=== PATIENT | female | born 1955 | race Caucasian/White ===

== ENCOUNTER 2017-02-27 18:39 | Emergency (ER) | payer SELFPAY ==
[2017-02-27] MEDS ORDERED: KETAMINE HCL 500 MG/10 ML VIAL ONE (19:05)
[2017-02-27 19:28] LABS: MEAN PLATELET VOLUME 8.3 fL (7.4-10.4)
[2017-02-27 19:31] LABS: BASOPHIL# 0.1 X 10^3uL (0.0-0.1); EOSINOPHILS 1.5 % (0.0-6.0); EOSINOPHILS# 0.1 X 10^3uL (0.0-0.4); HEMATOCRIT 50.2 % (36.0-48.0); HEMOGLOBIN 17.9 g/dL (12.0-16.0); LYMPHOCYTES 43.5 % (20.0-40.0); LYMPHOCYTES# 3.8 X 10^3uL (0.8-3.8); MEAN CELL VOLUME 90.3 fL (80.0-100.0); MEAN CORPUS. HGB CONCENTRATION 35.6 g/dL (32.0-36.0); MEAN CORPUSCULAR HEMOGLOBIN 32.2 pg (29.0-35.0); MONOCYTES 7.6 % (2.0-10.0); MONOCYTES# 0.7 X 10^3uL (0.2-1.0); NEUTROPHILS 46.4 % (54.0-75.0); NEUTROPHILS# 3.9 X 10^3uL (2.6-6.7); PLATELET COUNT 284 X 10^3uL (130-440); RED BLOOD COUNT 5.56 X 10^6uL (4.20-6.10); RED CELL DISTRIBUTION WIDTH 11.7 % (11.5-14.5); WHITE BLOOD COUNT 8.6 X 10^3uL (3.9-10.7)
[2017-02-27 19:43] LABS: A/G RATIO 1.3; ALBUMIN 5.3 g/dL (3.5-5.0); ALKALINE PHOSPHATASE 72 U/L (38-126); ALT 92 U/L (9-52); AST 71 U/L (14-36); BILIRUBIN, TOTAL 0.6 mg/dL (0.2-1.3); BLOOD UREA NITROGEN 10 mg/dL (7-17); CALCIUM 9.8 mg/dL (8.4-10.2); CHLORIDE 109 mmol/L (98-107); CREATININE 0.9 mg/dL (0.5-1.0); EST GLOMERULAR FILTRATION RATE > 60 mL/min; GLUCOSE 90 mg/dL (70-100); MAGNESIUM 2.3 mg/dL (1.6-2.3); POTASSIUM 3.8 mmol/L (3.5-5.1); SODIUM 150 mmol/L (137-145); TOTAL PROTEIN 9.3 g/dL (6.3-8.2)
[2017-02-27 19:53] LABS: ACETAMINOPHEN < 10.0 ug/mL (10.0-30.0); ETHYL ALCOHOL 340 mg/dL (<10); SALICYLATE < 1.0 mg/dL (<20.0)
--- NOTE | 2017-02-28 01:01 | ER PHYSICIAN DOCUMENTATION ---
Physician Documentation [facility] Name:Zonia Sánchez Age:61 yrs Sex:Female :1955 Arrival Date:02/27/2017 Time:18:39 BedTrauma-A Private MD: Terry Fritz Disposition: 02/28 00:16 Chart complete. tl1 Disposition: 02/28/17 00:00 Discharged to [facility]. Impression: Alcohol Intoxication, Dependence Acute. - Condition is Good. - Discharge Instructions: Abuse, Alcohol - ALCOHOL INTOXICATION. - Medical Reconciliation form form. - Follow up: Private Physician; When: 1 - 2 days; Reason: Recheck today's complaints, Continuance of care. - Problem is new. - Symptoms have improved. - Notes: GO DIRECTLY TO [facility] FOR EVALUATION. HPI: 02/27 18:50 This 61 yrs old Female presents to ER with complaints of ETOH Abuse. tl1 18:50 The patient presents to the emergency department with a history of substance abuse, tl1 Type: whisky, the amount of abuse is unknown, for an unknown duration. 02/28 00:01 She is a [employer] alumnus, and presented to [employer] this evening for alcohol detox and tl1 rehab, and by report, was immediately angry, confrontational, intoxicated, belligerent, and combative. Medics were summoned and she was brought here for evaluation. On arrival, her behavior was the same: violent, combative, threatening and assaultive. She was uncooperative with any attempt at obtaining a history and responded, "fuck off" to all questions.. Historical: - Allergies: Pt states no med allergies; - Home Meds: 1. unable to obtain - PMHx: unable to obtain; - PSHx: unable to obtain; - Tetanus: unknown. - Ebola Screening: : Unable to complete screening because. - Social history: Smoking status: unknown if patient ever smoked tobacco. - Immunization history: Unable to Obtain. ROS: 00:08 Unable to obtain ROS due to patient being uncooperative. tl1 Exam: 00:08 Head/Face: Normocephalic, atraumatic. tl1 Eyes: Pupils equal round and reactive to light, extra-ocular motions intact. Lids and lashes normal. Conjunctiva and sclera are non-icteric and not injected. Cornea within normal limits. Periorbital areas with no swelling, redness, or edema. ENT: Nares patent. No nasal discharge, no septal abnormalities noted. Tympanic membranes are normal and external auditory canals are clear. Oropharynx with no redness, swelling, or masses, exudates, or evidence of obstruction, uvula midline. Mucous membranes moist. Neck: Trachea midline, no thyromegaly or masses palpated, and no cervical lymphadenopathy. Supple, full range of motion without nuchal rigidity, or vertebral point tenderness. No Meningismus. Chest/axilla: Normal chest wall appearance and motion. Nontender with no deformity. No lesions are appreciated. Cardiovascular: Regular rate and rhythm with a normal S1 and S2. No gallops, murmurs, or rubs. Normal PMI, no JVD. No pulse deficits. Respiratory: Lungs have equal breath sounds bilaterally, clear to auscultation and percussion. No rales, rhonchi or wheezes noted. No increased work of breathing, no retractions or nasal flaring. Abdomen/GI: Soft, non-tender, with normal bowel sounds. No distension or tympany. No guarding or rebound. No evidence of tenderness throughout. Back: No spinal tenderness. No costovertebral tenderness. Full range of motion. 00:08 Skin: Warm, dry with normal turgor. Normal color with no rashes, no lesions, and no tl1 evidence of cellulitis. 00:08 Constitutional: The patient appears alert, awake, well developed, well hydrated, well groomed, well nourished, agitated, in obvious distress, smells of alcohol, restless. 00:08 Neuro: Orientation: unable to test, Mentation: responsive to voice inappropriate for stated age, unable to follow commands, Memory: unable to test, Cranial nerves: grossly normal, Motor: moves all fours, strength is 5/5 in all extremities, Gait: not tested. Deep tendon reflexes are 00:08 Psych: Behavior/mood is aggressive, uncooperative, Affect is animated, Judgement / Insight is impaired. Vital Signs: 02/27 19:04 BP 169 / 102 (auto/); tg 19:04 Weight 60 kg; tg 19:07 Pulse 106 MON; Resp 26; Pulse Ox 91% ; tg 19:10 BP 150 / 95 (auto/); tg 19:12 Pulse 103 MON; Resp 16; Pulse Ox 92% ; tg 19:17 Pulse 101 MON; Resp 19; Pulse Ox 90% ; lpr 19:20 BP 123 / 81 (auto/); lpr 19:22 Pulse 96 MON; Resp 21; Pulse Ox 91% ; lpr 19:27 Pulse 92 MON; Resp 21; Pulse Ox 90% ; lpr 19:30 BP 136 / 88 (auto/); tg 19:32 Pulse 91 MON; Resp 20; Pulse Ox 90% ; tg 19:37 Pulse 86 MON; Resp 20; Pulse Ox 96% ; lpr 19:40 BP 124 / 84 (auto/); tg 19:42 Pulse 82 MON; Resp 21; Pulse Ox 95% ; tg 19:47 Pulse 83 MON; Resp 22; Pulse Ox 95% ; lpr 19:50 BP 109 / 76 (auto/); lpr 19:52 Pulse 81 MON; Resp 18; Pulse Ox 93% ; lpr 19:57 Pulse 79 MON; Resp 19; Pulse Ox 92% ; lpr 20:00 BP 111 / 77 (auto/); lpr 20:02 Pulse 80 MON; Resp 18; Pulse Ox 91% ; lpr 20:07 Pulse 80 MON; Resp 19; Pulse Ox 94% ; lpr 20:10 BP 106 / 76 (auto/); lpr 20:12 Pulse 78 MON; Resp 25; Pulse Ox 93% ; lpr 20:17 Pulse 76 MON; Resp 21; Pulse Ox 96% ; lpr 20:20 BP 112 / 75 (auto/); lpr 20:22 Pulse 78 MON; Resp 18; Pulse Ox 96% ; lpr 20:27 Pulse 76 MON; Resp 22; Pulse Ox 96% ; lpr 20:30 BP 106 / 73 (auto/); lpr 20:32 Pulse 76 MON; Resp 20; Pulse Ox 96% ; lpr 20:37 Pulse 74 MON; Resp 23; Pulse Ox 96% ; lpr 20:40 BP 107 / 73 (auto/); lpr 20:42 Pulse 74 MON; Resp 26; Pulse Ox 96% ; lpr 20:47 Pulse 77 MON; Resp 19; Pulse Ox 95% ; lpr 20:50 BP 117 / 78 (auto/); lpr 20:52 Pulse 80 MON; Resp 18; Pulse Ox 92% ; lpr 20:57 Pulse 78 MON; Resp 22; lpr 21:00 BP 106 / 73 (auto/); lpr 21:02 Pulse 76 MON; Resp 17; lpr 21:07 Pulse 81 MON; Resp 17; lpr 21:10 BP 132 / 91 (auto/); lpr 21:12 Pulse 91 MON; Resp 17; lpr 21:17 Pulse 95 MON; Resp 17; lpr 21:20 BP 123 / 87 (auto/); lpr 21:22 Pulse 94 MON; Resp 15; lpr 21:27 Pulse 91 MON; Resp 23; lpr 21:30 BP 128 / 80 (auto/); lpr 21:32 Pulse 85 MON; Resp 17; lpr 21:37 Pulse 81 MON; Resp 10; lpr 21:40 BP 117 / 74 (auto/); lpr 21:42 Pulse 87 MON; Resp 17; lpr 19:04 weight estimated tg MDM: 19:05 Patient medically screened. tl1 02/28 00:10 Differential diagnosis: drug withdrawal. acute psychotic break, alcohol intoxication, tl1 alcohol withdrawal, other recreational drug use. Data reviewed: vital signs, nurses notes. Data reviewed: and as a result, I will *Transfer Patient. Data reviewed: old medical records, lab test result(s), EKG. Test interpretation: by ED physician or midlevel provider: ECG. Counseling: I had a detailed discussion with the patient and/or guardian regarding: the historical points, exam findings, and any diagnostic results supporting the discharge/admit diagnosis, lab results, the need for outpatient follow up, the need to transfer to another facility. Medication response: The patient's symptoms have improved, ketamine. Response to treatment: the patient's symptoms have markedly improved after treatment, and as a result, I will discharge patient. ED course: She was belligerent and agitated, threatening and kicking at staff. She was sedated with ketamine, 250 mg IM for her own and staff safety. She was calm and slept comfortably for several hours. A repeat EtOH level was 257, and she was easily aroused, and wished to go back to [employer] for further evaluation and care.. 02/27 19:38 Order name: CBC AUTO DIF, MDIF/RMOR IF IND; Complete Time: 22:40 EDMS 02/27 22:37 Interpretation: WHITE BLOOD COUNT 8.6; HEMOGLOBIN 17.9; HEMATOCRIT 50.2; PLATELET COUNT tl1 284. 02/27 19:53 Order name: ETHYL ALCOHOL; Complete Time: 22:40 EDMS 02/27 22:38 Interpretation: Abnormal: ETHYL ALCOHOL 340. tl1 02/27 19:54 Order name: COMPREHENSIVE METABOLIC PANEL; Complete Time: 22:40 EDMS 02/27 22:39 Interpretation: SODIUM 150; POTASSIUM 3.8; CHLORIDE 109; CARBON DIOXIDE 18; ALT 92; tl1 ALBUMIN 5.3; AST 71; TOTAL PROTEIN 9.3. 02/27 19:54 Order name: MAGNESIUM; Complete Time: 22:40 EDMS 02/27 22:39 Interpretation: Normal: MAGNESIUM 2.3. 1 02/27 19:54 Order name: SALICYLATE; Complete Time: 22:40 EDMS 05 22:39 Interpretation: Normal: SALICYLATE < 1.0. tl1 02/27 19:54 Order name: ACETAMINOPHEN; Complete Time: 22:40 EDMS 02/27 22:39 Interpretation: Normal: ACETAMINOPHEN < 10.0. 02/27 23:13 Order name: ETHYL ALCOHOL; Complete Time: 23:39 EDMS 02/27 23:37 Interpretation: Abnormal: ETHYL ALCOHOL 257. 1 02/27 19:00 Order name: Restraints, 4 point, Adults, for Violent Behavior creating danger to pt lpr and/or others, 4 hour max duration, 4 point soft wrist and ankle restraints, criteria for removal is pt is no longer threat to self or others; Complete Time: 19:37 Dispensed Medications: 02/27 19:05 Drug: Ketamine 250 mg; Route: IM; Site: left gluteus; rs Signatures: Mayur Wilder RN RN tg Dyan Philip RN RN rs Campbell, Sandy, RN RN sc1 Criss Hodge RN RN lpr Terry Patricia MD MD 1
--- NOTE | 2017-02-28 01:01 | ER NURSING DOCUMENTATION ---
Nurse's Notes [facility] Name:Zonia Sánchez Age:61 yrs Sex:Female :1955 Arrival Date:02/27/2017 Time:18:39 BedTrauma-A Private MD: Diagnosis:Alcohol Intoxication, Dependence Acute Presentation: 02/27 18:43 Acuity: ROYCE 2 tg 19:10 Presenting complaint: Patient states: Pt aggressive, refusing to answer quesstions, tg screaming "fuck you" when attempting to get VS. Pt swinging punches and kicking feet at this RN and the doctor. Transition of care: Other Pt was dropped off at [facility] by her family, and was combative with staff at [facility] who called 911. 19:10 Method Of Arrival: EMS: 400 tg 19:34 Acuity: ROYCE 1 tg Triage Assessment: 19:00 General: Appears distressed, Behavior is restless, combative, uncooperative, Smells of tg alcohol. Respiratory: Airway is patent Respiratory effort is even, unlabored. Derm: Skin is pink, warm & dry. 19:30 General: Appears in no apparent distress, Behavior is drowsy, quiet. Pain: Unable to lpr use pain scale. patient given Ketamine and unable to answer questions. EENT: Oral mucosa is dry. Neuro: Level of Consciousness is sleeping. Cardiovascular: Rhythm is sinus rhythm. Respiratory: Airway is patent Respiratory effort is even, unlabored, Respiratory pattern is regular, symmetrical. GI: Abdomen is non- distended. : No deficits noted. Derm: Skin is intact, is healthy with good turgor, Skin is pink, warm & dry. Musculoskeletal: Circulation, motion, and sensation intact Capillary refill. 19:44 General: Appears. tg Historical: - Allergies: Pt states no med allergies; - Home Meds: 1. unable to obtain - PMHx: unable to obtain; - PSHx: unable to obtain; - Tetanus: unknown. - Ebola Screening: : Unable to complete screening because. - Social history: Smoking status: unknown if patient ever smoked tobacco. - Immunization history: Unable to Obtain. Screenin:37 Infectious Disease Risk Unable to Obtain. Abuse screen: Unable to Obtain. Nutritional tg screening: Unable to Obtain. Suicide Risk Assessment: Unable to obtain due to. Assessment: 21:27 See Triage Assessment done by same RN. lpr Vital Signs: 19:04 BP 169 / 102 (auto/); tg 19:04 Weight 60 kg; tg 19:07 Pulse 106 MON; Resp 26; Pulse Ox 91% ; tg 19:10 BP 150 / 95 (auto/); tg 19:12 Pulse 103 MON; Resp 16; Pulse Ox 92% ; tg 19:17 Pulse 101 MON; Resp 19; Pulse Ox 90% ; lpr 19:20 BP 123 / 81 (auto/); lpr 19:22 Pulse 96 MON; Resp 21; Pulse Ox 91% ; lpr 19:27 Pulse 92 MON; Resp 21; Pulse Ox 90% ; lpr 19:30 BP 136 / 88 (auto/); tg 19:32 Pulse 91 MON; Resp 20; Pulse Ox 90% ; tg 19:37 Pulse 86 MON; Resp 20; Pulse Ox 96% ; lpr 19:40 BP 124 / 84 (auto/); tg 19:42 Pulse 82 MON; Resp 21; Pulse Ox 95% ; tg 19:47 Pulse 83 MON; Resp 22; Pulse Ox 95% ; lpr 19:50 BP 109 / 76 (auto/); lpr 19:52 Pulse 81 MON; Resp 18; Pulse Ox 93% ; lpr 19:57 Pulse 79 MON; Resp 19; Pulse Ox 92% ; lpr 20:00 BP 111 / 77 (auto/); lpr 20:02 Pulse 80 MON; Resp 18; Pulse Ox 91% ; lpr 20:07 Pulse 80 MON; Resp 19; Pulse Ox 94% ; lpr 20:10 BP 106 / 76 (auto/); lpr 20:12 Pulse 78 MON; Resp 25; Pulse Ox 93% ; lpr 20:17 Pulse 76 MON; Resp 21; Pulse Ox 96% ; lpr 20:20 BP 112 / 75 (auto/); lpr 20:22 Pulse 78 MON; Resp 18; Pulse Ox 96% ; lpr 20:27 Pulse 76 MON; Resp 22; Pulse Ox 96% ; lpr 20:30 BP 106 / 73 (auto/); lpr 20:32 Pulse 76 MON; Resp 20; Pulse Ox 96% ; lpr 20:37 Pulse 74 MON; Resp 23; Pulse Ox 96% ; lpr 20:40 BP 107 / 73 (auto/); lpr 20:42 Pulse 74 MON; Resp 26; Pulse Ox 96% ; lpr 20:47 Pulse 77 MON; Resp 19; Pulse Ox 95% ; lpr 20:50 BP 117 / 78 (auto/); lpr 20:52 Pulse 80 MON; Resp 18; Pulse Ox 92% ; lpr 20:57 Pulse 78 MON; Resp 22; lpr 21:00 BP 106 / 73 (auto/); lpr 21:02 Pulse 76 MON; Resp 17; lpr 21:07 Pulse 81 MON; Resp 17; lpr 21:10 BP 132 / 91 (auto/); lpr 21:12 Pulse 91 MON; Resp 17; lpr 21:17 Pulse 95 MON; Resp 17; lpr 21:20 BP 123 / 87 (auto/); lpr 21:22 Pulse 94 MON; Resp 15; lpr 21:27 Pulse 91 MON; Resp 23; lpr 21:30 BP 128 / 80 (auto/); lpr 21:32 Pulse 85 MON; Resp 17; lpr 21:37 Pulse 81 MON; Resp 10; lpr 21:40 BP 117 / 74 (auto/); lpr 21:42 Pulse 87 MON; Resp 17; lpr 19:04 weight estimated tg ED Course: 18:42 Patient arrived in ED. ma1 18:43 Mayur Wilder RN is Primary Nurse. tg 18:43 Triage completed. tg 19:05 Terry Patricia MD is Attending Physician. tl1 19:10 Placed nasal trumpet 26 Fr via left nares. tg 19:15 Inserted saline lock: 20 gauge in left forearm and blood collected. lpr 19:37 Valuables. wallpaper printer on. Pulse ox on. tg 19:38 Oxygen Oxygen administration via nasal cannula @ 2L/min. tg 19:53 Report given to MIGUEL Kahn. tg 21:15 Assist Provider Assist provider with pelvic exam: small plastic bag with 3 blue pills lpr and 3 yellow pills found at entrance to vagina. 23:32 Primary Nurse role handed off by Mayur Wilder, RN sc1 23:32 Ary Paul, RN is Primary Nurse. sc1 23:33 Report given to Ary Paul RN. lpr Restraints: 19:01 ORDER Received. lpr 19:05 Assessment done every 15 minutes. Level of Consciousness is unable to follow directions tg Circulation: Capillary refill is Less than 3 sec. at all 4 extremeties Skin is intact, Behavior other sedated Respirations are regular, unlabored. Implementation: The following less restrictive methods were implemented: attempts at problem solving, calming interaction with one-on-one intervention, Physician assessed patient at 19:01. The patient was given an explanation of the restraint protocol, the criteria for removal, their patient rights, Restraints applied at 19:05 Patient was restrained with upper limb restraints bilaterally. lower limb restraints bilaterally. Restraints were applied because patient is a danger to self, danger to staff. Response to meds is profound effect. Observations: Patient is resting/calm. 19:20 Assessment done every 15 minutes. Vital signs recorded. Skin is intact, normal, warm, tg dry, Behavior other sedated Respirations are regular, unlabored. 19:35 Assessment done every 15 minutes. Respirations are regular, unlabored. Observations: tg Patient is resting/calm. 19:45 Assessment done every 15 minutes. Level of Consciousness is unable to follow directions lpr sleeping. Circulation: Capillary refill is less than 3 seconds Skin is intact, Behavior other sleeping Respirations are regular, unlabored. 20:00 Assessment done every 15 minutes. Level of Consciousness is sleeping. Circulation: lpr Capillary refill is less than 3 seconds Skin is intact, Behavior other sleeping Respirations are regular, unlabored. 20:15 Assessment done every 15 minutes. Level of Consciousness is sleeping. Circulation: lpr Capillary refill is less than 3 seconds Skin is intact, Behavior other sleeping Respirations are regular, unlabored. 20:30 Assessment done every 15 minutes. Level of Consciousness is sleeping. Circulation: lpr Capillary refill is less than 3 seconds Skin is intact, Behavior other sleeping Respirations are regular, unlabored. 20:45 Assessment done every 15 minutes. Level of Consciousness is sleeping. Circulation: lpr Capillary refill is less than 3 seconds Skin is intact, Behavior other sleeping Respirations are regular, unlabored. 21:00 Assessment done every 15 minutes. Level of Consciousness is sleeping. Circulation: lpr Capillary refill is less than 3 seconds Skin is intact, Behavior other sleeping Respirations are regular, unlabored. 21:00 Restraints were released at this time and patient was given opportunity to walk, lpr reposition or toilet. 21:15 Assessment done every 15 minutes. Level of Consciousness is sleeping. Circulation: lpr Capillary refill is less than 3 seconds Skin is intact, Behavior other sleeping Respirations are regular, unlabored. 21:36 Assessment done every 15 minutes. Level of Consciousness is starting to wake up. lpr Cursing at RN. Asking to go to the bathroom. Refuses to use bedpan. Not safe to get patient up.. Circulation: Capillary refill is less than 3 seconds Skin is intact, Behavior is less agitated. Respirations are regular, unlabored. 21:45 Assessment done every 15 minutes. Level of Consciousness is Confused Circulation: lpr Capillary refill is less than 3 seconds Skin is intact, Behavior is less agitated. Respirations are regular, unlabored. 22:00 Assessment done every 15 minutes. Level of Consciousness is Confused Circulation: lpr Capillary refill is less than 3 seconds Skin is intact, Behavior is agitated. Respirations are regular, unlabored. 22:15 Assessment done every 15 minutes. Level of Consciousness is Confused Circulation: lpr Capillary refill is greater than 3 seconds Skin is intact, Behavior is agitated. Respirations are regular, unlabored. 22:30 Assessment done every 15 minutes. Level of Consciousness is Confused unable to follow lpr directions Circulation: Capillary refill is greater than 3 seconds Skin is intact, Behavior is agitated. Respirations are regular, unlabored. 22:45 Assessment done every 15 minutes. Level of Consciousness is Confused unable to follow lpr directions Circulation: Capillary refill is less than 3 seconds Skin is intact, Behavior is agitated. Respirations are regular, unlabored. 23:05 Assessment done every 15 minutes. Level of Consciousness is Confused unable to follow lpr directions Circulation: Capillary refill is less than 3 seconds Skin is intact, Behavior is agitated. is less agitated. Respirations are regular, unlabored. 23:20 Removal: Restraints were removed at 23:15. lpr Administered Medications: 19:05 Drug: Ketamine 250 mg; Route: IM; Site: left gluteus; rs Outcome: 02/28 00:00 Discharge ordered by . tl1 01:00 Patient left the ED. sc1 Signatures: Mayur Wilder RN RN Dyan Philip RN RN rs Campbell, Sandy, RN RN ky1 Criss Hodge RN RN lpr Leigh, Tom, MD MD tl1 Addison, Melissa txMarcelle
== END 2017-02-28 01:01 ==
LOC: ER 18:39
DX: F10.229 Alcohol dependence with intoxication, unspecified (principal); R45.6 Violent behavior; R45.1 Restlessness and agitation; R45.4 Irritability and anger; Z78.1 Physical restraint status; Z74.3 Need for continuous supervision
CPT/HCPCS: 36415; 80053; 80307; 80320; 80329; 83735; 85025; 96372; 99285